=== PATIENT | male | born 1975 | race Caucasian/White ===

== ENCOUNTER 2020-02-19 19:06 | Observation (INO) | payer BC ==
[~2020-02-19 19:06] MED LIST: Iopamidol-370 76% 500 ML 1 ML ONE
[2020-02-19 20:22] LABS: Hemoglobin 14.6 g/dL (14.0-18.0); Mean Corpuscular HGB CONC 33.4 g/dL (32.0-36.0); Mean Corpuscular Hemoglobin 28.2 pg (27.0-31.0); Mean Corpuscular Volume 84.4 fL (78.0-98.0); Mean Platelet Volume 7.5 fL (7.4-10.4); Platelet Count 172 thou/uL (130-400); RBC Distribution Width 13.1 % (11.5-14.5); Red Blood Cell (RBC) Count 5.17 mill/uL (4.70-6.10); White Blood Cell (WBC) Count 9.6 thou/uL (4.8-10.8)
[2020-02-19 20:35] LABS: ALT (SGPT) 71 U/L (8-55); AST (SGOT) 45 U/L (5-34); Albumin 3.9 g/dL (3.5-5.0); Alkaline Phosphatase 57 U/L (40-110); Anion Gap 11 mmol/L (10-20); BUN (Urea Nitrogen) 21 mg/dL (8.9-20.6); Bilirubin, Total 1.1 mg/dL (0.2-1.2); Calc. Creatinine Clearance 0 mL/min (70-130); Calcium 8.4 mg/dL (7.8-10.44); Carbon Dioxide 25 mmol/L (22-29); Chloride 100 mmol/L (98-107); Estimated GFR-MDRD 63; Globulin 2.7 g/dL (2.4-3.5); Glucose 110 mg/dL (70-105); Lipase 25 U/L (8-78); Potassium 3.3 mmol/L (3.5-5.1); Protein, Total 6.6 g/dL (6.0-8.3); Sodium 133 mmol/L (136-145)
[2020-02-19 20:43] LABS: Band 17 % (5-11); Lymphocytes 9 % (21-51); MDiff Complete? YES; Monocytes 5 % (0-10); Neutrophil 65 % (42-75); Reactive Lymphocytes 4 % (0-10)
[2020-02-19] MEDS ORDERED: Ondansetron PF 4 MG/2 ML Vial ONE (20:52)
[2020-02-19] MEDS ORDERED: Morphine 4 MG/ML VIAL ONE ×2 (20:52→22:28)
[2020-02-19 21:22] LABS: Bacteria/HPF None Seen HPF (None Seen); Bilirubin Negative (Negative); Blood, Urine Trace (Negative); Clarity Clear (Clear); Glucose, Urine (Dipstick) Normal (Negative); Ketone, Urine Negative (Negative); Leukocyte Negative Leu/uL (Negative); Nitrite Negative (Negative); Protein, Urine (Dipstick) 70 mg/dL (Neg-Trace); Specific Gravity, Urine 1.042 (1.002-1.036); Squamous Epithelial 0-3 HPF (0-3); WBC/HPF 0-3 HPF (0-3); pH, Urine 6.5 (5.0-9.0)
--- NOTE | 2020-02-19 21:44 | CT ---
CT of abdomen and pelvis: 02/19/2020 COMPARISON: None HISTORY: Right lower quadrant pain TECHNIQUE: Axial CT imaging at 5 mm intervals from lung bases through pubic symphysis with IV contras t. Coronal and sagittal reformatted imaging obtained. FINDINGS: The imaged lung bases are unremarkable. No free intraperitoneal air or fluid is seen. The liver, spleen, gallbladder, pancreas, adrenal glands, and kidneys are unremarkable. Small volume free fluid is noted within the pelvis posterior to the urinary bladder. There are calcified appendicoliths at the base of the appendix. The appendix is dilated, fluid-filled , and thick walled, measuring approximately 1.3 cm in transverse dimension. Periappendiceal fat stranding is seen. The appendix demonstrates a retrocecal location. Findings are consistent with acut e appendicitis. No evidence for abscess. The vascular structures of the abdomen/pelvis appear patent. No abdominal or pelvic lymphadenopathy. No acute osseous abnormality is noted. IMPRESSION: Acute appendicitis. Juan Carlos Chavez made aware at 9:40 PM 02/19/2020
[2020-02-19] MEDS ORDERED: Piperacillin/Tazobactam 3.375 GM VIAL ONE (22:28)
[2020-02-19] MEDS ORDERED: Acetaminophen 500 MG TAB ONE (23:26)
[2020-02-20 01:29] VITALS: BMI 28.7
[2020-02-20] MEDS ORDERED: Morphine 4 MG/ML VIAL ONE ×2 (02:34→06:57)
[2020-02-20] MEDS ORDERED: Morphine 4 MG/ML VIAL SLOW IVP PRN ×2 (02:40→15:17)
[2020-02-20] MEDS ORDERED: Ondansetron ODT 4 MG TAB SL PRN (02:45)
[2020-02-20] MEDS ORDERED: Sodium Chloride 0.9% 1,000 ML IV SCH (02:45)
[2020-02-20] MEDS ORDERED: Ondansetron PF 4 MG/2 ML Vial IVP PRN ×2 (02:45→13:13)
[2020-02-20] MEDS ORDERED: Piperacillin/Tazobactam 3.375 GM in Sodium Chloride 0.9% 100 ML IVPB SCH (05:00)
[2020-02-20] MEDS ORDERED: Piperacillin/Tazobactam 3.375 GM VIAL ONE ×2 (05:44→10:57)
[2020-02-20 08:39] LABS: SARS-CoV-2 MS2 Positive; SARS-CoV-2 N Gene Negative; SARS-CoV-2 S Gene Negative; SARS-CoV-2 by NAA Not Detected (NotDetected); SARS-CoV-2 orf1ab Negative
[2020-02-20] MEDS ORDERED: Acetaminophen 325 MG TAB ONE (09:08)
[2020-02-20] MEDS ORDERED: Midazolam HCl 2 mg/2 ml Vial ONE (10:49)
[2020-02-20] MEDS ORDERED: Fentanyl 100 MCG/2 ML VIAL ONE (10:49)
[2020-02-20] MEDS ORDERED: EPINEPHrine 1 MG/ML AMP ONE (10:51)
[2020-02-20] MEDS ORDERED: Bupivacaine 0.25% HCL 30 ML VIAL ONE (10:51)
[2020-02-20] MEDS ORDERED: Sodium Chloride 0.9% 100 ML ONE (10:57)
[2020-02-20] MEDS ORDERED: Ketorolac Tromethamine 30 MG/ML VIAL ONE (12:04)
[2020-02-20] MEDS ORDERED: Glycopyrrolate 0.2 MG/ML 5 ML SYRINGE ONE (12:04)
[2020-02-20] MEDS ORDERED: Ondansetron PF 4 MG/2 ML Vial ONE (12:04)
[2020-02-20] MEDS ORDERED: Rocuronium Bromide 10 MG/ML (10ML VIAL) ONE (12:04)
[2020-02-20] MEDS ORDERED: ePHEDrine 50 MG/ML VIAL ONE (12:04)
[2020-02-20] MEDS ORDERED: Dexamethasone 20 MG/5 ML VIAL ONE (12:04)
[2020-02-20] MEDS ORDERED: PROPOFOL 200 MG/20 ML VIAL ONE (12:04)
[2020-02-20] MEDS ORDERED: Lidocaine 1% PF 5 ML VIAL ONE (12:04)
[2020-02-20] MEDS ORDERED: PACU-Morphine 4MG/ML VIAL SLOW IVP PRN (13:10)
[2020-02-20] MEDS ORDERED: Ondansetron HCl/PF 4 MG/2 ML Vial IVP PRN (13:10)
[2020-02-20] MEDS ORDERED: Promethazine HCl 25 MG/ML VIAL SLOW IVP PRN (13:10)
[2020-02-20] MEDS ORDERED: HYDROmorphone 2 MG/ML VIAL SLOW IVP PRN (13:10)
[2020-02-20] MEDS ORDERED: Promethazine HCl 25 MG/ML VIAL IM PRN ×2 (13:10→13:13)
[2020-02-20] MEDS ORDERED: Dextrose 50% Abboject 50 ML SYRINGE SLOW IVP PRN (13:13)
[2020-02-20] MEDS ORDERED: Dextrose 5% in Water 1,000 ML IV PRN (13:13)
[2020-02-20] MEDS ORDERED: hydrALAZINE 20 MG/ML VIAL SLOW IVP PRN (13:13)
[2020-02-20] MEDS ORDERED: traMADol HCl 50 MG TAB PO PRN ×2 (13:15)
--- NOTE | 2020-02-20 13:31 | OP ---
DATE OF PROCEDURE: 02/20/2020 PREOPERATIVE DIAGNOSIS: Acute appendicitis. POSTOPERATIVE DIAGNOSIS: Acute retrocecal appendicitis with necrosis. ANESTHESIA: General endotracheal. ESTIMATED BLOOD LOSS: 30 mL. FLUIDS GIVEN: 1200 mL crystalloids. COUNTS: Sponge and instrument counts were verified as correct x2. COMPLICATIONS: None apparent at the time of operation. INDICATIONS FOR OPERATION: A 44-year-old man presented with recurrent right lower quadrant abdominal pain, which has been present for the last one month. The pain had intensified over the last 2 to 3 days associated with some nausea . FINDINGS: Consistent with necrotic retrocecal acute appendicitis with localized peritonitis and abscess. DESCRIPTION OF PROCEDURE: Informed consent was obtained from the patient who was brought to the operating room and placed in supine position. Following general anesthesia, abdomen was sterilely prepped and draped in usual fashion. The skin below the umbilicus was infiltrated with 0.25% Marcaine with epinephrine. A small curvilinear infraumbilical incision was made using 11 scalpel. Umbilical stalk was grasped with Florinda and elevated. A Veress needle was inserted through the incision and placed in peritoneal cavity through which the abdomen was insufflated with 3 L of CO2 gas. Intraabdominal pressure noted at 2 mmHg. Following abdominal insufflation, Veress needle was removed and a 5 mm trocar introduced using a Visiport under laparoscopy. Laparoscopy confirmed proper placement of the port. No injuries to underlying structures. Additional laparoscopy reveals the right lower quadrant completely encased by omental adhesions, which extends superiorly past the umbilicus. Under direct laparoscopy, two 5 mm suprapubic and left lower quadrant ports were placed after the overlying skin were infiltrated with 0.25% Marcaine with epinephrine and appropriate incision was made. The patient was placed in a Trendelenburg position, rotated to his left. I introduced a Outlistenige grasper through the left lower quadrant port site, using this to bluntly take down omental adhesions to expose the distal ileum which was welded to the right lateral gutter obscuring the cecum. Using the LigaSure device, the distal ileum was meticulously dissected off the right lateral gutter. Care was taken to avoid injury to the bowel. We were then able to trace this down to the terminal ileum. We inspected the distal ileum from the terminal ileum to proximal 3 feet. No Meckel diverticulum was noted. Gross purulent fluid was noted in the deep pelvis, which was evacuated with suction. There was fibrinous exudates in the right lateral gutter extending towards the liver. Using the Endo suction catheter, we were able to bluntly tease apart necrotic tissues in the right lateral gutter to expose a necrotic appendix in a retrocecal position. The appendix was then grasped with a Prestige grasper and mesoappendix was sterilely divided using LigaSure device. I noticed that there was necrosis and perforation in the base of the appendix. I was then able to divide the appendix at the appendicocecal junction between Endoloop. The appendiceal stump was couple of mm below the necrotic perforation of the appendix itself. The necrotic appendix was delivered of the abdominal cavity using an EndoCatch. Operative site was irrigated with saline noting good hemostasis in place. Finding no other pathology, exploration was terminated. Fascia of the left lower quadrant port was closed using 0 Vicryl suture and Endoclosure device. The abdomen was desufflated. All ports and instruments were removed and accounted for. Skin incisions were closed using 4-0 Monocryl suture in subcuticular fashion. Dermabond was applied over incisional closure. The patient tolerated the operation without any apparent complication and was returned to recovery room in a satisfactory condition. Job ID: [id number] [facility]
[2020-02-20] MEDS: Potassium Chloride 20 MEQ in Lactated Ringer's 1,000 ML IV SCH (17:38)
[2020-02-20] MEDS: Ketorolac Tromethamine 30 MG/ML VIAL IVP SCH ×2 (17:42→23:35)
[2020-02-20] MEDS: Piperacillin/Tazobactam 3.375 GM in Sodium Chloride 0.9% 100 ML IVPB SCH ×2 (17:47→21:13)
[2020-02-20] MEDS: Famotidine 20 MG TAB PO SCH (20:54)
[2020-02-20] MEDS: Senokot S 8.6-50 MG TAB PO SCH (20:55)
[2020-02-20] MEDS: Famotidine/PF 20 mg/2ml Vial SLOW IVP SCH (20:59)
[2020-02-20] MEDS ORDERED: Rosuvastatin 20 MG TAB PO SCH (21:00)
[2020-02-20] MEDS ORDERED: Enoxaparin Sodium 40 MG/0.4 ML SYRINGE SC SCH (21:00)
[2020-02-21] MEDS: Potassium Chloride 20 MEQ in Lactated Ringer's 1,000 ML IV SCH ×4 (00:12→15:56)
--- NOTE | 2020-02-21 00:57 | HP ---
SURGEON: Dr. Zuniga. CONSULTING PHYSICIAN: Dr. Anne. HISTORY OF PRESENT ILLNESS: The patient is a 44-year-old male presented to the emergency department complaining of right lower quadrant abdominal pain. The patient reports that over the past 24 hours, it had gotten significantly worse. He denies nausea or vomiting. He denies chest pain, shortness of breath, cough. He reports that he had some mild diarrhea the evening before admission. Denies fever or chills. REVIEW OF SYSTEMS: All additional 10-point review of systems negative except as indicated above. PAST MEDICAL HISTORY: Hypertension, hyperlipidemia, and anxiety. PAST SURGICAL HISTORY: Right ear surgery as a child. SOCIAL HISTORY: The patient denies tobacco and drug use. He reports drinking alcohol on the weekends. The patient is a rolloff truck driver. MEDICATIONS: Include: 1. CoQ10. 2. Nexium. 3. Lisinopril. 4. Paroxetine. 5. Crestor. PHYSICAL EXAMINATION: VITAL SIGNS: Temperature 99.8, pulse 74, respirations 16, oxygen saturation 97% on room air, blood pressure 103/61. GENERAL: Well-appearing middle-aged male, lying in bed with no signs of acute distress. PULMONARY: Equal chest rise and fall. Clear breath sounds bilaterally. No signs of acute respiratory distress. CARDIAC: Regular rate and rhythm. GI: Abdomen is soft, moderately tender to palpation in the right lower quadrant. Nondistended. EXTREMITIES: 2+ pulses in all extremities. Gross motor and sensation are intact. No significant swelling noted. NEUROLOGIC: GCS is 15. LABORATORY FINDINGS: White count 9.6, hemoglobin 14.6, hematocrit 43.7, platelets 172. Sodium 133, potassium 3.3, chloride 100, bicarb 25, BUN 21, creatinine 1.24, glucose 110, total bilirubin 1.1, AST 45, AST 71, lipase 25. UA is negative for infection. DIAGNOSTIC FINDINGS: CT scan of the abdomen and pelvis demonstrates acute appendicitis. ASSESSMENT: 1. Acute appendicitis. 2. History of hypertension, hyperlipidemia, and anxiety. PLAN: The patient will be admitted to the Trauma Service. He will go to the OR for laparoscopic appendectomy with Dr. Zuniga. We will start him on IV fluids, n.p.o. He will receive Zosyn for antibiotics. This patient was seen and examined by Dr. Zuniga and myself. Job ID: [id number]
[2020-02-21] MEDS: Piperacillin/Tazobactam 3.375 GM in Sodium Chloride 0.9% 100 ML IVPB SCH ×3 (04:21→16:01)
[2020-02-21 05:48] LABS: #Lymphocytes 0.9 thou/uL (1.20-3.40); #Monocytes 0.4 thou/uL (0.11-0.59); #Neutrophils 6.5 thou/uL (1.40-6.50); %Basophils 0.1 % (0.0-1.0); %Eosinophils 0.1 % (0.0-10.0); %Lymphocytes 11.5 % (21.0-51.0); %Monocytes 5.3 % (0.0-10.0); Hemoglobin 12.7 g/dL (14.0-18.0); Mean Corpuscular HGB CONC 32.7 g/dL (32.0-36.0); Mean Corpuscular Hemoglobin 28.1 pg (27.0-31.0); Mean Corpuscular Volume 86.1 fL (78.0-98.0); Mean Platelet Volume 7.7 fL (7.4-10.4); Platelet Count 138 thou/uL (130-400); RBC Distribution Width 13.2 % (11.5-14.5); Red Blood Cell (RBC) Count 4.52 mill/uL (4.70-6.10); White Blood Cell (WBC) Count 7.8 thou/uL (4.8-10.8)
[2020-02-21] MEDS: Ketorolac Tromethamine 30 MG/ML VIAL IVP SCH ×2 (05:56→11:22)
[2020-02-21 06:09] LABS: Anion Gap 11 mmol/L (10-20); BUN (Urea Nitrogen) 12 mg/dL (8.9-20.6); Calc. Creatinine Clearance 140 mL/min (70-130); Calcium 8.2 mg/dL (7.8-10.44); Carbon Dioxide 25 mmol/L (22-29); Chloride 105 mmol/L (98-107); Estimated GFR-MDRD 83; Glucose 138 mg/dL (70-105); Magnesium 2.2 mg/dL (1.6-2.6); Phosphorus 2.5 mg/dL (2.3-4.7); Potassium 4.2 mmol/L (3.5-5.1); Sodium 137 mmol/L (136-145)
[2020-02-21] MEDS ORDERED: Polyethylene Glycol 3350 17 GM Packet PO SCH (09:00)
[2020-02-21] MEDS ORDERED: Lisinopril 10 MG TAB PO SCH (09:00)
[2020-02-21] MEDS ORDERED: PARoxetine 20 MG TAB PO SCH (09:00)
[2020-02-21] MEDS: Famotidine/PF 20 mg/2ml Vial SLOW IVP SCH (09:55)
[2020-02-21] MEDS: Famotidine 20 MG TAB PO SCH (09:55)
[2020-02-21] MEDS: Senokot S 8.6-50 MG TAB PO SCH (10:43)
[2020-02-21 11:28] VITALS: BP 131/79; TEMP 98.4
== END 2020-02-21 16:22 | disposition home or self-care (01) ==
LOC: ERS 19:06 → ERHOLD 21:51 → SURG A 23:33
PROVIDERS: ADMIT Surgery; ATTEND Surgery
PROC: 0DTJ4ZZ Resection of Appendix, Percutaneous Endoscopic Approach (ICD-10-PCS; principal; 2020-02-20)
DX: K35.31 Acute appendicitis with localized peritonitis and gangrene, without perforation (principal); I10 Essential (primary) hypertension; E78.5 Hyperlipidemia, unspecified; F41.9 Anxiety disorder, unspecified; Z87.891 Personal history of nicotine dependence; Z79.899 Other long term (current) drug therapy; Z20.828 Contact with and (suspected) exposure to other viral communicable diseases
CPT/HCPCS: 36415; 51701; 51798; 74177; 80048; 80053; 81003; 81015; 83690; 83735; 84100; 85025; 87635; 88304; 96365; 96366; 96372; 96375; 96376; G0378; J0171; J1100; J1650; J1885; J2250; J2270; J2405; J2543; J2704; J3010; J3480; J3490; J7120; Q9967; S0020; U0003